=== PATIENT | male | born 1995 | race Caucasian/White ===

== ENCOUNTER 2019-05-17 17:38 | Emergency (ER) | payer OTHER ==
[~2019-05-17] VITALS: Ht 182.9 cm; Wt 88.4 kg
[2019-05-17 17:38] VITALS: BP 117/54
--- NOTE | 2019-05-17 18:10 | REP ---
Clinical: Trauma . Technique: Internal rotation, external rotation, and Y view right shoulder. Findings: Acromioclavicular joint separation cannot be excluded and should be correlated with physical examination and point of tenderness. No acute fracture or glenohumeral joint dislocation. No periarticular calcifications or degenerative changes are appreciated. Sub acromial space is normal. Surrounding soft tissues are unremarkable. Impression: Acromioclavicular joint separation suspected. Electronically Signed by Joe Toribio MD 05/17/2019 06:02 P
== END 2019-05-17 18:56 | disposition home or self-care (01) ==
LOC: M ED 17:38
DX: S46.011A Strain of muscle(s) and tendon(s) of the rotator cuff of right shoulder, initial encounter (principal); S40.011A Contusion of right shoulder, initial encounter; S43.51XA Sprain of right acromioclavicular joint, initial encounter; S43.121A Dislocation of right acromioclavicular joint, 100%-200% displacement, initial encounter; W00.9XXA Unspecified fall due to ice and snow, initial encounter; Y92.830 Public park as the place of occurrence of the external cause; Y93.23 Activity, snow (alpine) (downhill) skiing, snowboarding, sledding, tobogganing and snow tubing; Y99.9 Unspecified external cause status; F17.200 Nicotine dependence, unspecified, uncomplicated